=== PATIENT | male | born 1965 | race Caucasian/White ===

== ENCOUNTER 2020-12-24 14:18 | Emergency (ER) | payer BC ==
[~2020-12-24] VITALS: Ht 188 cm; Wt 102.2 kg
[~2020-12-24 14:18] MED LIST: ASPIRIN EC81 MG PO; ATORVASTATIN CA80 MG PO; CRUTCH1 EACH; IBUPROFEN600 MG PO; METOPROLOL SUCC50 MG PO; NORCO 5-325 TA1 EACH PO
--- OUTSIDE RECORDS SUMMARY | 2020-12-24 14:22 | XMS ---
PreManage Notification: ANDREY PATTEN Security Physical Therapist Aide Events No recent Security Events currently on file CRITERIA MET - [facility] - 2 Visits in 30 Days CARE PROVIDERS There are no care providers on record at this time. Tab has no Care Guidelines for this patient. EMigdalia VISIT COUNT (12 MO.) 1 [facility] NOTE: Visits indicate total known visits. ED/UCC VISIT TRACKING (12 MO.) 12[facility]24/2020 14[facility] [place] [facility] Emergency COMPLAINT: - L ARM NUMBNESS, SOB, LETHARGIC 12/22/2020 00:14 [facility] [place] TYPE: Emergency DIAGNOSES: - chest pain numbness pain down left arm - Other specified abnormalities of plasma proteins - Chest pain, unspecified - Disorder of kidney and ureter, unspecified - Chest Pain INPATIENT VISIT TRACKING (12 MO.) No inpatient visits to display in this time frame [email or web address]
[2020-12-24] MEDS ORDERED: ROSUVASTATIN CA20 MG PO (14:40)
--- NOTE | 2020-12-24 22:14 | EKG ---
[facility] [address] [facility] [place], [place] [address] Signed Normal sinus rhythm Inferior infarct , age undetermined Cannot rule out Anterior infarct , age undetermined Abnormal ECG No previous ECGs available Confirmed by LIVIER SANDERS MD ([id number]) on 12/24/2020 10:14:05 PM Electronically Signed By: LIVIER SANDERS MD 12/24/20 2214 PATIENT NAME: ANDREY PATTEN Seema Electrocardiogram DATE OF : 65 PHYSICIAN: LIVIER SANDERS MD REPORT #: [id number] REPORT IS CONFIDENTIAL AND NOT TO BE RELEASED WITHOUT AUTHORIZATION
== END 2020-12-24 18:29 | disposition short-term general hospital (02) ==
LOC: ED 14:18
DX: I21.4 Non-ST elevation (NSTEMI) myocardial infarction (principal); Z20.822 Contact with and (suspected) exposure to COVID-19; I10 Essential (primary) hypertension; F17.200 Nicotine dependence, unspecified, uncomplicated; Z88.0 Allergy status to penicillin; Z79.899 Other long term (current) drug therapy
CPT/HCPCS: 80053; 83880; 84484; 85025; 93005; 93010; 96372; 99285-25; 99406; C9803; J1650; U0003

== ENCOUNTER → 2020-12-30 | Emergency (ER) | payer BC ==
[~2020-12-30] VITALS: Ht 188 cm; Wt 90.7 kg
[~2020-12-30] MED LIST changes: +ROSUVASTATIN CA20 MG PO
--- OUTSIDE RECORDS SUMMARY | 2020-12-30 05:54 | XMS ---
PreManage Notification: ANDREY PATTEN Security Babbitter Events No recent Security Events currently on file CRITERIA MET - [facility] - 2 Visits in 30 Days CARE PROVIDERS [id number] [facility] 12/25/2020-Current PHONE: [phone] Tab has no Care Guidelines for this patient. EMigdalia VISIT COUNT (12 MO.) [address] [facility] [address] TOTAL 3 NOTE: Visits indicate total known visits. ED/[facility] VISIT TRACKING (12 MO.) 12/30/2020 05:52 [facility] [place] TYPE: Emergency COMPLAINT: - CHEST PAIN, L ARM PAIN 12/24/2020 14:19 [facility] [place] TYPE: Emergency COMPLAINT: - L ARM NUMBNESS, SOB, LETHARGIC DIAGNOSES: - Non-ST elevation (NSTEMI) myocardial infarction - Allergy status to penicillin - Nicotine dependence, unspecified, uncomplicated - Other skilled nursing (current) drug therapy - Essential (primary) hypertension - Cervicalgia 12/22/2020 00:14 [facility] Corinne LEWIS TYPE: Emergency DIAGNOSES: - chest pain numbness pain down left arm - Other specified abnormalities of plasma proteins - Chest pain, unspecified - Disorder of kidney and ureter, unspecified - Chest Pain INPATIENT VISIT TRACKING (12 MO.) 12/24/2020 19:30 Arlene LEWIS TYPE: Intensive Care DIAGNOSES: - Non-ST elevation (NSTEMI) myocardial infarction - NSTEMI [email or web address]
--- NOTE | 2020-12-30 13:38 | EKG ---
[facility] [address] [facility] [place] [address] Signed Normal sinus rhythm Inferior infarct (cited on or before 24-DEC-2020) Lateral injury pattern ACUTE OK / STEMI Abnormal ECG When compared with ECG of 24-DEC-2020 17:35, Minimal criteria for Anterior infarct are no longer present ST now depressed in Inferior leads ST elevation now present in Lateral leads T wave inversion more evident in Inferior leads Confirmed by MUNA LAZARO DO ([id number]) on 12/30/2020 1:38:20 PM Electronically Signed By: MUNA LAZARO DO 12/30/20 1338 PATIENT NAME: ANDREY PATTEN Electrocardiogram DATE OF : 65 PHYSICIAN: MUNA LAZARO DO REPORT #: [id number] REPORT IS CONFIDENTIAL AND NOT TO BE RELEASED WITHOUT AUTHORIZATION
== END ==
LOC: ED 05:51
DX: I21.3 ST elevation (STEMI) myocardial infarction of unspecified site (principal); Z20.822 Contact with and (suspected) exposure to COVID-19; I10 Essential (primary) hypertension; I25.2 Old myocardial infarction; Z87.891 Personal history of nicotine dependence; Z88.0 Allergy status to penicillin; Z79.899 Other long term (current) drug therapy
CPT/HCPCS: 71045; 80053; 83735; 84484; 85025; 93005; 93010; 96374; 96375; 96376; 99285-25; C9803; J1644; J2270; U0003

== ENCOUNTER 2021-11-07 08:00 | Day surgery (SDC) | payer OTHER ==
--- NOTE | 2021-11-03 11:34 | NUR ---
HAD COVID IN JANUARY OR FEBRUARY 2021. HOPITALIZED AT [facility], WAS ON ROOM AIR THE WHOLE VISIT, STEROIDS AND OTHER MEDICATIONS ? WHAT THEY ARE, BUT WAS SOB, COUGHT, AND FEVER. CURRENTLY NO RESP ISSUES
[~2021-11-07] VITALS: Ht 188 cm; Wt 103.2 kg
[~2021-11-07 08:00] MED LIST changes: +BAYER CHEWABLE81 MG PO; +BRILINTA90 MG PO; +ENTRESTO 24 MG1 EACH PO; +LIPITOR40 MG PO
--- NOTE | 2021-11-07 10:23 | NUR ---
11/07/21 1023 Toya Palumbo 1020 PATIENT ARRIVES TO PACU AWAKE. DENIES PAIN OR NAUSEA. RESP EVEN AND UNLABORED, ROOM AIR SATS >93%.
--- NOTE | 2021-11-08 06:47 | OR ---
[facility] [address] [place], [place] [address] Signed DATE OF OPERATION: 11/07/2021 SURGEON: Trace Mallory MD PREOPERATIVE DIAGNOSIS: Recurring left gluteal cyst. POSTOPERATIVE DIAGNOSIS: Recurring left gluteal cyst. PROCEDURE: Excision of left gluteal cyst. ESTIMATED BLOOD LOSS: None. INDICATIONS: Andrey is a 55-year-old gentleman, who unfortunately suffered his first heart attack in his mid 40s and has required several episodes of stenting. He has been on Brilinta and aspirin for the cardiac stents. He can come off his anticoagulation to the end of December of this year. He has had a recurring left gluteal cyst just off to the side of his gluteal crease. He has had it incised and drained four previous times. He has quite a bit of scar tissue and it keeps coming back. It is causing him a lot of pain. He wanted to have that removed. He was quite worried that it was going to get reinfected. Therefore, he wanted to have the cyst removed while on Brilinta and aspirin under monitored anesthesia care in the OR. We had ran this by his cardiac providers and they were in agreement. He wants a colonoscopy. We will do that later in the year when he can come off his anticoagulation. In the office, I could see a small area just about 3 or 4 mm in diameter just to the left to the mid gluteal crease. It is quite indurated and underneath, it seems to travel a little bit towards his gluteal crease. I explained to Andrey this most likely will be a standard epidermal inclusion cyst. It is a little far to be a fistula tract. Also, I did not see any specific evidence for a pilonidal cyst. All that was discussed as well. He understands the expected surgery. We reviewed the intra and postop course. There is risk to the surgery including, but not limited to bleeding, infection, scarring, change in contour of the skin, and possible need for additional surgeries based on intraoperative findings. He had expressed understanding and wished to proceed. DESCRIPTION OF PROCEDURE: I met with Andrey in the preop area. We both could easily identify the area and marked Electronically Signed By: TRACE MALLORY MD 11/08/21 0647 PATIENT NAME: ANDREY PATTEN OPERATIVE REPORT DATE OF : 65 REPORT #: [id number] PHYSICIAN: TRACE MALLORY MD PCP: MATTHEW BLANKENSHIP MD REPORT IS CONFIDENTIAL AND NOT TO BE RELEASED WITHOUT AUTHORIZATION [facility] [address] [place], [place] [address] Signed it appropriately. After this, he was taken into the operating room and placed in the left lateral decubitus position with appropriate padding and monitoring. Our nurse design engineer marine equipment was able to provide him with monitored anesthesia care. With the second level from a right hand, I carefully did a digital rectal exam and felt all the way up to the tip of the coccyx and all the way over towards his lesion. There was no palpable evidence that this extended down towards the dentate line. After this, second glove had been removed and we went ahead and injected local anesthetic in and around the lesion. He had been prepped and draped in the usual sterile fashion and he was given preoperative antibiotics. A transverse elliptical incision was made around the lesion to include the lesion and all the surrounding indurated skin. We went around that with our cautery and underneath the adipose tissue was quite soft, healthy, and satisfactory, there was no fistula tract, there was no tracking towards the midline of the gluteal crease. Therefore, the entire lesion was removed en bloc. After this, the wound was irrigated and suctioned out until clear. The dermis was reapproximated with multiple interrupted 3-0 subcuticular Monocryl sutures. We used interrupted 2-0 nylon vertical mattress sutures to help add some strength to that repair. Four those sutures had been placed. We then used a 5-0 fast absorbing plain gut suture in a running fashion to close the skin edges to provide a good seal. After this, dry gauze and tape were applied. Andrey was then rotated into the supine position onto his hospital bed and taken into the recovery room in stable condition. Trace Mallory MD ALB/MODL /[id number] cc: Ann Bonilla, Nurse Practitioner MD Matthew Posey MD Patient Chart Copies: TRACE MALLORY MD Electronically Signed By: TRACE MALLORY MD 11/08/21 0647 PATIENT NAME: ANDREY PATTEN OPERATIVE REPORT DATE OF : 65 REPORT #: [id number] PHYSICIAN: TRACE MALLORY MD PCP: MATTHEW BLANKENSHIP MD REPORT IS CONFIDENTIAL AND NOT TO BE RELEASED WITHOUT AUTHORIZATION [address] [address] Signed MATTHEW BLANKENSHIP DMD ~ Electronically Signed By: TRACE MALLORY MD 11/08/21 0647 PATIENT NAME: ANDREY PATTEN OPERATIVE REPORT DATE OF : 65 REPORT #: [id number] PHYSICIAN: TRACE MALLORY MD PCP: MATTHEW BLANKENSHIP MD REPORT IS CONFIDENTIAL AND NOT TO BE RELEASED WITHOUT AUTHORIZATION
--- NOTE | 2021-11-10 16:17 | PATH ---
[facility] [address] [place], [place] [address] Signed SPECIMEN(S): A LEFT GLUTEAL CYST SPECIMEN SOURCE: A. LEFT GLUTEAL CYST CLINICAL HISTORY: Left gluteal cyst FINAL PATHOLOGIC DIAGNOSIS: Left gluteal cyst, excision: - Dermal abscess formation with features suggestive of previously ruptured epidermoid inclusion cyst, see comment. COMMENT: Within the dermal abscess are keratin debris and superficial squamous cells. No residual epithelial lining is identified on representative personal service sections. Overall, the findings are compatible with a previously ruptured epidermoid inclusion cyst. NAL:cml:C2NR MICROSCOPIC EXAMINATION: Histologic sections of all submitted blocks are examined by light microscopy. These findings, together with the gross examination, support the pathologic diagnosis. GROSS DESCRIPTION: The specimen, labeled "RM, A," and designated on the requisition "left gluteal cyst," is received in formalin and consists of a portion of pink-jacobo soft tissue (3.2 x 3.6 x 2.3 cm) with attached ellipse of pink-jacobo skin (3.4 cm in length by 1.4 cm in width). The resection margin is inked blue, and the specimen is serially sectioned to reveal a yellow-jacobo fatty to white-jacobo fibrous cut surface with hemorrhagic, purulent material filled cysts (1.5 x 1.2 x 0.8 cm). Sewing Machine Assembler sections are submitted in cassette A1. AC (under the direct supervision of a pathologist) The Gross Description was prepared using a voice recognition system. The report was reviewed for accuracy; however, sound-alike word errors, addition and/or deletions may occur. If there is any question about this report, please contact Client Services. PERFORMING LABORATORY: PATIENT NAME: ANDREY PATTEN PATHOLOGY DATE OF : 65 REPORT #: [id number] PHYSICIAN: EVAN LEW PCP: MATTHEW BLANKENSHIP MD REPORT IS CONFIDENTIAL AND NOT TO BE RELEASED WITHOUT AUTHORIZATION [facility] [address] [place] [address] Signed The technical component was performed [place] [address] (Maintenance Journeyman: Sugar Turner MD; CLIA# [id number]). Professional interpretation was performed by [facility], [address] [address] (CLIA# [id number]). Diagnostician: Rhonda Buckner MD Pathologist Electronically Signed 11/10/2021 Copies: ~ PATIENT NAME: ANDREY PATTEN PATHOLOGY DATE OF : 65 REPORT #: [id number] PHYSICIAN: EVAN LEW PCP: MATTHEW BLANKENSHIP MD REPORT IS CONFIDENTIAL AND NOT TO BE RELEASED WITHOUT AUTHORIZATION
== END 2021-11-07 10:55 | disposition home or self-care (01) ==
LOC: DS 08:00
PROVIDERS: ATTEND Colon & Rectal Surgery
PROC: 0HB8XZZ Excision of Buttock Skin, External Approach (ICD-10-PCS; principal; 2021-11-07 08:15)
DX: L02.31 Cutaneous abscess of buttock (principal); I10 Essential (primary) hypertension; E78.5 Hyperlipidemia, unspecified; I25.10 Atherosclerotic heart disease of native coronary artery without angina pectoris; I25.2 Old myocardial infarction; Z87.891 Personal history of nicotine dependence; Z88.0 Allergy status to penicillin; Z88.1 Allergy status to other antibiotic agents; Z95.818 Presence of other cardiac implants and grafts
CPT/HCPCS: 00300; J0690; J2250; J3010

== ENCOUNTER 2023-03-10 06:51 | Day surgery (SDC) | payer OTHER ==
[2023-03-03 10:24] VITALS: BP 102/63
[~2023-03-10] VITALS: Ht 182.9 cm; Wt 91.4 kg
[~2023-03-10 06:51] MED LIST changes: +JARDIANCE10 MG PO; +METOPROLOL SUCC25 MG PO; +NITROSTAT0.4 MG SL; +PACERONE400 MG PO; +SPIRONOLACTONE25 MG PO
[2023-03-10 07:09] VITALS: BP 134/78
[2023-03-10] MEDS ORDERED: VITAMIN E45 M1 PO (07:12)
--- NOTE | 2023-03-10 10:02 | NUR ---
03/10/23 Ameena Washburn 3887-PATIENT ARRIVED TO PACU ON 6L MASK ORAL AIRWAY IN PLACE NONAROUSABLE RN DOING JAW TILT TO MAINTAIN OPEN AIRWAY. AV PACED. IV FLUIDS INFUSING.
[2023-03-10 11:06] VITALS: BP 135/67
--- NOTE | 2023-03-10 11:12 | NUR ---
1030: PT RETURNS TO UNIT VIA STRETCHER FROM PACU. AWAKE AND ALERT ON ARRIVAL. VSS, RESP EVEN AND UNLABORED. LEFT GLUTEAL DRESSING C/D/I. DENIES PAIN AND NAUSEA. POC DISCUSSED AND PT AGREEABLE AT THIS TIME. ICE WATER AND CRACKERS PROVIDED. NO NEEDS VOICED, CALL LIGHT WITHIN REACH
[2023-03-10 11:36] VITALS: BP 112/56
--- NOTE | 2023-03-10 11:38 | NUR ---
1130: PT AWAKE AND ALERT IN STRETCHER ON CELLPHONE. VSS, RESP EVEN AND UNLABORED. DENIES PAIN AND NAUSEA. VICENTA PO INTAKE WELL. DANGLES AT THE BEDSIDE, VICENTA WELL. DENIES DIZZINESS AND SOB. AMBULATES TO BR WITH STANDBY FROM THIS RN, STEADY GAIT. SUCCESSFUL FIRST POSTOP VOID, 400MLS. AMBULATES BACK TO ROOM AND DRESSES FOR DC
--- NOTE | 2023-03-10 12:21 | NUR ---
1145: SL REMOVED WITH CATH TIP INTACT AND PRESSURE APPLIED TO SITE, WNL. DC INSTRUCTIONS PROVIDED AND DISCUSSED ORDERED. PT VOICES UNDERSTANDING AND DENIES QUESTIONS AND CONCERNS AT THIS TIME. WHEELED OFF OF UNIT BY THIS RN. TRANSFERS INTO VEHICLE INDEPENDENTLY AND APROPRIATELY. NO PHYSICAL S/S OF DISTRESS AT THIS TIME
--- NOTE | 2023-03-10 15:01 | NUR ---
PT ALERT, ORIENTED AND MENTIONED HE HAS HAD TO HAVE THIS PROCEDURE PREVIOUS. GAVE ENCOURAGEMENT, PT FEELS INFORMED-DECLINED PRAYER. HAS RIDE ARRANGED HOME FOLLOWING DC. GAVE BLESSING
--- NOTE | 2023-03-11 06:27 | OR ---
[facility] [address] [place], [place] [address] Signed DATE OF OPERATION: 03/10/2023 SURGEON: Trace Mallory MD PREOPERATIVE DIAGNOSIS: Recurrent left gluteal abscess/draining tract. POSTOPERATIVE DIAGNOSIS: Recurrent left gluteal abscess/draining tract. PROCEDURE: Excision of recurrent left gluteal abscess. ESTIMATED BLOOD LOSS: None. INDICATIONS: Andrey is a 57-year-old gentleman, asked to see me for recurrent left gluteal abscess. It is just lateral to the tip of his coccyx. We have actually excised this now 2 or 3 times. He likes to go to the local athletic club and exercise and do sit-ups and so forth. He has had a small area just lateral to the drain intermittently. I explained to Andrey I suspect he has a small amount of granulation tissue or little sinus tract underneath the skin. On this occasion, we thought it would be better to do this in the OR where we can have good lighting, get around this nicely with the cautery and track down any sinus tracts there might exist. We have tried it now a couple of times in the office and not having great success. He understands the nature of the surgery. There is risk including, but not limited to bleeding, infection, scarring, change in contour of the skin as well as recurrent abscess in the same or other locations. He has expressed understanding and would like to proceed. DESCRIPTION OF PROCEDURE: I met with Andrey in the preop area. With our nurse in the room, we had him roll up into the right lateral decubitus position and we could easily identify the transverse scar and a small circular punctate area just slightly lateral to the midline at that incision. With gentle pressure, we could not evacuate any fluid or pus. There is indurated tissue and scarring but we do not see any obvious local signs or symptoms of infection. We then marked that area appropriately. After this, Andrey was taken into the operating room and placed in the prone position under general endotracheal tube anesthesia with appropriate padding and monitoring. We noted a yellowing bruise on his mid right biceps probably 4 cm in diameter. After this, he was prepped and draped in Electronically Signed By: TRACE MALLORY MD 03/11/23 0627 PATIENT NAME: ANDREY PATTEN OPERATIVE REPORT DATE OF : 65 REPORT #: [id number] PHYSICIAN: TRACE MALLORY MD PCP: MATTHEW BLANKENSHIP MD REPORT IS CONFIDENTIAL AND NOT TO BE RELEASED WITHOUT AUTHORIZATION [facility] [address] [place], [place] [address] Signed the usual sterile fashion. He was given preoperative antibiotics along with subcutaneous heparin. SCDs were utilized. We then used a 15 blade knife to make a transverse incision around that previous scar and we went carefully and slowly down around this area with the help of the cautery with meticulous hemostasis. We went around until we had all the indurated tissue out and we were in healthy adipose tissue. We went down almost to the gluteus muscle. Again, we went very slowly and we did not find any sinus tract that was traveling any distance whatsoever. The entire specimen had been passed off the field. We injected local anesthetic into the wound. We irrigated the wound and suctioned that out until clear. We then closed the dermis with multiple interrupted 3-0 subcuticular and Monocryl sutures. We used a 5-0 fast absorbing plain gut suture to bring the skin edges together. Dry gauze and tape was then applied. Andrey was then rotated into the supine position, awakened from his anesthesia, extubated in the OR and taken to recovery room in stable condition. Trace Mallory MD ALB/MODL /[id number] cc: MD Matthew Posey MD Copies: TRACE MALLORY MD, ROBERT D DMD ~ Electronically Signed By: TRACE MALLORY MD 03/11/23 0627 PATIENT NAME: ANDREY PATTEN OPERATIVE REPORT DATE OF : 65 REPORT #: [id number] PHYSICIAN: TRACE MALLORY MD PCP: MATTHEW BLANKENSHIP MD REPORT IS CONFIDENTIAL AND NOT TO BE RELEASED WITHOUT AUTHORIZATION
--- NOTE | 2023-03-12 14:43 | PATH ---
[facility] [address] [facility] [place], [place] [address] Signed SPECIMEN(S): A RECURRENT LEFT GLUTEAL ABSCESS SPECIMEN SOURCE: A. RECURRENT LEFT GLUTEAL ABSCESS CLINICAL HISTORY: Excision recurrent left gluteal abscess. FINAL PATHOLOGIC DIAGNOSIS: Recurrent left gluteal abscess: - Skin with subcutaneous abscess with adjacent fibrosclerosis and scar. JVR:amilcarh:C2NR MICROSCOPIC EXAMINATION: Histologic sections of all submitted blocks are examined by light microscopy. These findings, together with the gross examination, support the pathologic diagnosis. GROSS DESCRIPTION: The specimen, labeled and designated "Eriberto, recurrent left gluteal abscess," is received in formalin and consists of an unoriented skin ellipse that measures 3.2 x 0.8 cm with attached yellow-jacobo, lobulated, slightly firm fibroadipose tissue up to 2.5 cm. The skin surface is pink-jacobo, slightly corrugated. The specimen is sectioned and upon sectioning shows a subcutaneous cyst-like defect that measures 1.2 cm in diameter. The cyst is filled with a pink-jacobo liquefied tissue. Store Person sections are submitted in (A1). JS (under the direct supervision of a pathologist) The Gross Description was prepared using a voice recognition system. The report was reviewed for accuracy; however, sound-alike word errors, addition and/or deletions may occur. If there is any question about this report, please contact Client Services. PERFORMING LABORATORY: Technical component was performed by [facility], [address] [place] [id number] (CLIA# [id number]). Professional interpretation was performed by [facility], [address] [place] [id number] (CLIA#: [id number]). Diagnostician: Bob Acuna MD Pathologist PATIENT NAME: ANDREY PATTEN PATHOLOGY DATE OF : 65 REPORT #: [id number] PHYSICIAN: [facility] PCP: MATTHEW BLANKENSHIP MD REPORT IS CONFIDENTIAL AND NOT TO BE RELEASED WITHOUT AUTHORIZATION [address] [address] Signed Electronically Signed 03/12/2023 Copies: ~ PATIENT NAME: ANDREY PATTEN PATHOLOGY DATE OF : 65 REPORT #: [id number] PHYSICIAN: [facility] PCP: MATTHEW BLANKENSHIP MD REPORT IS CONFIDENTIAL AND NOT TO BE RELEASED WITHOUT AUTHORIZATION
== END 2023-03-10 11:45 | disposition home or self-care (01) ==
LOC: DS 06:51
PROVIDERS: ATTEND Colon & Rectal Surgery
PROC: 0J990ZZ Drainage of Buttock Subcutaneous Tissue and Fascia, Open Approach (ICD-10-PCS; principal; 2023-03-10 08:30)
DX: L02.31 Cutaneous abscess of buttock (principal); I10 Essential (primary) hypertension; I25.10 Atherosclerotic heart disease of native coronary artery without angina pectoris; E78.5 Hyperlipidemia, unspecified; Z88.0 Allergy status to penicillin
CPT/HCPCS: 00300; 88304; J0330; J0690; J1100; J1160; J1644; J1885; J2250; J2405; J2704; J2765; J3010; J7121